=== PATIENT | female | born 1955 | race Caucasian/White ===

== ENCOUNTER 2016-09-02 15:21 | Emergency (ER) | payer BC ==
[2016-09-02 15:46] VITALS: BP 139/78
--- NOTE | 2016-09-02 17:07 | UC ---
Knee Pain HPI - HPI Summary HPI Summary: patient arrives after 2 days of acute onset medial knee pain. denies trauma or other injury. Awoke from sleep with 10/10 pain. Took motrin with little relief. Flexing knee makes it worse, resting and ice makes the pain better. In full extension - patient feels little to no pain. unable to bear weight completely. patient walks several miles per day and is very active. denies previous injury to the knee. denies warmth, redness and swelling. - History of Current Complaint Chief Complaint: UCLowerExtremity Stated Complaint: KNEE PAIN Hx Obtained From: Patient ?: No Onset/Duration: Sudden Onset Severity Initially: Moderate Severity Currently: Moderate Pain Intensity: 4 Pain Scale Used: 0-10 Numeric Character: Sharp Aggravating Factor(s): Movement, Weight Bearing, Stairs Alleviating Factor(s): Rest, Position - full extension Associated Signs And Symptoms: Positive: Negative Able to Bear Weight: No - only when fully extended, otherwise painful - Risk Factors Septic Arthritis Risk Factor: Negative Gout Risk Factor: Age ^ 38 - Allergies/Home Medications Allergies/Adverse Reactions: Allergies Allergy/AdvReac Type Severity Reaction Status Date / Time No Known Allergies Allergy Verified 09/02/16 15:46 PMH/Surg Hx/FS Hx/Imm Hx Previously Healthy: Yes Endocrine History Of: Denies: Diabetes, Thyroid Disease Cardiovascular History Of: Denies: Cardiac Disorders, Hypertension Respiratory History Of: Denies: COPD, Asthma GI/ History Of: Denies: Ulcer Psychological History Of: Reports: Depression - SLIGHT Cancer History Of: Denies: Breast Cancer - Surgical History Surgical History: Yes Surgery Procedure, Year, and Place: DETACHED RETINA- LEFT- 2011 - Social History Occupation: Employed Full-time Lives: With Family Alcohol Use: Occasionally Substance Use Type: None Smoking Status (MU): Never Smoked Tobacco Have You Smoked in the Last Year: No Review of Systems Constitutional: Negative Skin: Negative Respiratory: Negative Cardiovascular: Negative Musculoskeletal: Other: - full ROM, pain on medial side of knee Neurological: Weakness Psychological: Negative All Other Systems Reviewed And Are Negative: Yes Physical Exam Triage Information Reviewed: Yes Appearance: Well-Appearing, No Pain Distress, Well-Nourished Vital Signs: Initial Vital Signs Temp 98.8 F 09/02/16 15:41 Pulse 60 09/02/16 15:41 Resp 16 09/02/16 15:41 BP 139/78 09/02/16 15:41 Pulse Ox 98 09/02/16 15:41 Vital Signs Reviewed: Yes Eye Exam: Normal Eyes: Positive: Conjunctiva Clear Neck exam: Normal Neck: Positive: Supple Respiratory Exam: Normal Respiratory: Positive: Chest non-tender, Lungs clear Cardiovascular Exam: Normal Musculoskeletal: Positive: ROM Intact, No Edema, Strength Limited @ - pain Neurological: Positive: Alert Psychological: Positive: Normal Response To Family, Age Appropriate Behavior Skin Exam: Normal Knee Pain Course/Dx - Course Course Of Treatment: patient was given information on pes ansirine tendinitis. provider explained this is only a possibility of the patients knee pain, and should follow up with ortho if symptoms continue. low suspician for fx based on acute onset at rest, full ROM, pain on palpation of the medial collateral ligament - Differential Dx/Diagnosis Differential Diagnosis/HQI/PQRI: Sprain, Strain, Tendonitis Provider Diagnoses: knee pain - Physician Notifications Instructed by Provider To: Have Pt Call For Appt. - dr. wahl - ortho Discharge - Discharge Plan Condition: Stable Disposition: HOME Prescriptions: Gabapentin CAP(*) [Neurontin 300 CAP(*)] 300 mg PO BID #14 cap MDD 2 Hydrocodone-Acetaminophen [Hydrocodone/Acetaminophen 5-325 mg] 1 tab PO Q6HR # 15 tab MDD 4 Patient Education Materials: Tendinitis (ED) Referrals: No Primary Care Phys,NOPCP [Primary Care Provider] - Raymundo Wahl MD [Medical Doctor] - Additional Instructions: Follow up with primary care. May take Ibuprofen 600mg three times daily with meals. Gabapentin twice daily with meals. Oxycodone at bedtime, but may take up to 4 x daily if symptoms are severe.
== END 2016-09-02 16:56 | disposition home or self-care (01) ==
LOC: UCEAST 15:21
DX: M25.569 Pain in unspecified knee (principal)
CPT/HCPCS: 99212; G0463

== ENCOUNTER 2017-11-13 14:56 | Emergency (ER) | payer BC ==
[2017-11-13 15:36] VITALS: BP 150/96
--- NOTE | 2017-11-13 15:41 | UC ---
Throat Pain/Nasal Jared HPI - HPI Summary HPI Summary: Pt presents with sore throat and cough for the last 10 days. She tells me that her cough began about 10 days ago and was dry, but has progressed to productive yellow phlegm over the last 2-3 days. Has been taking delsym with mild relief. Denies fever, chills, SOB, chest pain, abdominal pain, or body aches - History of Current Complaint Chief Complaint: UCRespiratory Stated Complaint: COUGH/SORE THROAT Time Seen by Provider: 11/13/17 15:41 Hx Obtained From: Patient Onset/Duration: Gradual Onset Severity: Moderate Pain Intensity: 5 Pain Scale Used: 0-10 Numeric Cough: Productive - Allergies/Home Medications Allergies/Adverse Reactions: Allergies Allergy/AdvReac Type Severity Reaction Status Date / Time No Known Allergies Allergy Verified 11/13/17 15:36 PMH/Surg Hx/FS Hx/Imm Hx Previously Healthy: Yes Psychological History: Anxiety - Surgical History Surgical History: Yes Surgery Procedure, Year, and Place: DETACHED RETINA- LEFT- 2012-[place] - Family History Known Family History: Positive: Hypertension - Social History Occupation: Employed Full-time Lives: With Family Alcohol Use: Occasionally Substance Use Type: None Smoking Status (MU): Never Smoked Tobacco Have You Smoked in the Last Year: No Review of Systems Constitutional: Negative Skin: Negative Eyes: Negative ENT: Sore Throat Respiratory: Cough Cardiovascular: Negative Gastrointestinal: Negative Neurovascular: Negative Musculoskeletal: Negative Neurological: Negative Psychological: Negative All Other Systems Reviewed And Are Negative: Yes Physical Exam - Summary Physical Exam Summary: GENERAL: NAD. WDWN. No pain distress. SKIN: No rashes, sores, ulcers, masses, lesions. HEENT: Head: AT/NC Eyes: Conjunctiva clear without inflammation or discharge. Ears: Hearing grossly normal. TMs intact, no bulging, erythema, or edema. Nose: Nasal mucosa pink and moist. NTTP maxillary and frontal sinus. Throat: Posterior oropharynx without exudates, erythema, or tonsillar enlargement. Uvula midline. NECK: Supple. Nontender. No lymphadenopathy. CHEST: Mild wheezing throughout. No r/r. No accessory muscle use. Breathing comfortably and in no distress. CV: RRR. Without m/r/g. Pulses intact. Brisk cap refill. NEURO: Alert. CN II-XII grossly intact. PSYCH: Age appropriate behavior. Triage Information Reviewed: Yes Vital Signs: Initial Vital Signs Temp 100.0 F 11/13/17 15:33 Pulse 85 11/13/17 15:33 Resp 18 11/13/17 15:33 BP 150/96 11/13/17 15:33 Pulse Ox 98 11/13/17 15:33 Throat Pain/Nasal Course/Dx - Course Course Of Treatment: Suspect bronchitis. Will cover her with zpak, albuterol inhaler, and robitussin at bedtime. - Differential Dx/Diagnosis Provider Diagnoses: Bronchitis Discharge - Discharge Plan Condition: Stable Disposition: HOME Prescriptions: Albuterol HFA INHALER* [Ventolin HFA Inhaler*] 1 - 2 puff INH Q6H PRN #4 mdi PRN Reason: Sob/Wheezing Azithromycin TAB* [Zithromax TAB (Z-JOSE F) 250 mg #6 tabs] 2 tab PO .TODAY, THEN 1 DAILY #1 jose f guaiFENesin/CODIEN 100MG-10MG* [Robitussin AC 100Mg-10Mg*] 5 ml PO BEDTIME PRN # 30 ml MDD 5mL PRN Reason: Cough Patient Education Materials: Acute Bronchitis (ED) Referrals: Swati Bach NP [Primary Care Provider] - Additional Instructions: If you develop a fever, shortness of breath, chest pain, new or worsening symptoms - please call your PCP or go to the ED. Your blood pressure was high at todays visit. Please see your primary provider within 4 weeks for recheck and re-evaluation.
== END 2017-11-13 15:53 | disposition home or self-care (01) ==
LOC: UCEAST 14:56
DX: J40 Bronchitis, not specified as acute or chronic (principal)
CPT/HCPCS: 99212; G0463

== ENCOUNTER 2018-01-16 11:37 | Emergency (ER) | payer BC ==
[2018-01-16 11:45] VITALS: BP 142/88
--- NOTE | 2018-01-16 12:10 | UC ---
Throat Pain/Nasal Jared HPI - HPI Summary HPI Summary: 62 y/o female presents to the urgent care c/o sinus congestion w/ yellowish nasal discharge and AGGARWAL for the past 2 weeks. Pt reports about a months ago she was Dx w/ Bronchitis, symptoms resolved, but since she takes care of her grand children symptoms return w/ a common cold. Now Pain is 6/10 w/ pressure and + PND and decrease sense of smell. Pt has taken Motrin to alleviate symptoms. Pt denies fever, SOB, chest pain, abdominal pain, N/V/D. - History of Current Complaint Chief Complaint: UCRespiratory Stated Complaint: SINUS COMPLAINT Time Seen by Provider: 01/16/18 12:08 Hx Obtained From: Patient ?: No - Menopausal Onset/Duration: Gradual Onset, Lasting Weeks - 2 weeks, Still Present, Worse Since - last 2 days Severity: Moderate Pain Intensity: 6 Pain Scale Used: 0-10 Numeric Cough: Nonproductive Associated Signs & Symptoms: Positive: Sinus Discomfort, Nasal Discharge - yellowish, Other - decrease sense of smell - Epiglottits Risk Factors Epiglottis Risk Factors: Negative - Allergies/Home Medications Allergies/Adverse Reactions: Allergies Allergy/AdvReac Type Severity Reaction Status Date / Time No Known Allergies Allergy Verified 01/16/18 11:45 PMH/Surg Hx/FS Hx/Imm Hx Previously Healthy: Yes Psychological History: Depression - Surgical History Surgical History: Yes Surgery Procedure, Year, and Place: DETACHED RETINA- LEFT- 2012-[place] - Family History Known Family History: Positive: Hypertension, Diabetes - Social History Occupation: Unemployed Lives: With Family Alcohol Use: Occasionally Substance Use Type: None Smoking Status (MU): Former Smoker Have You Smoked in the Last Year: No Review of Systems Constitutional: Negative Skin: Negative Eyes: Negative ENT: Nasal Discharge, Sinus Congestion, Sinus Pain/Tenderness, Other - decrease sense of smell Respiratory: Cough - dry Cardiovascular: Negative Gastrointestinal: Negative Genitourinary: Negative Motor: Negative Neurovascular: Negative Musculoskeletal: Negative Neurological: Headache Psychological: Negative Is Patient Immunocompromised?: No All Other Systems Reviewed And Are Negative: Yes Physical Exam - Summary Physical Exam Summary: Vitals: reviewed General: Well developed, well-nourished female patient with NAD. Head and face: Normocephalic and atraumatic, Positive tenderness over the frontal and maxillary sinuses.. Eyes: PERRLA, EOMI x 2. Normal conjunctiva. No eye discharge. ENT: Ears and TM with normal limits. Nose: edematous and erythematous nasal mucosa with with yellowish discharge and erythematous mucosa. Pharynx with erythema, no exudate. +PND yellowish Neck: Supple, no JVD, no carotid bruits and no lymphadenopathy. Lungs: clear, no rales, no rhonchi, no wheezes. CVS: RRR, S1 and S2 present no murmurs or gallops appreciated. Abdomen: soft nontender with positive bowel sounds. Extremities: no edema noted. Neuro: WNL. Skin: warm and dry Triage Information Reviewed: Yes Vital Signs: Initial Vital Signs Temp 98 F 01/16/18 11:41 Pulse 84 01/16/18 11:41 Resp 20 01/16/18 11:41 BP 142/88 01/16/18 11:41 Pulse Ox 100 01/16/18 11:41 Throat Pain/Nasal Course/Dx - Course Course Of Treatment: 62 y/o female presents to the urgent care c/o sinus congestion w/ yellowish nasal discharge and AGGARWAL for the past 2 weeks. Pt reports about a months ago she was Dx w/ Bronchitis, symptoms resolved, but since she takes care of her grand children symptoms return w/ a common cold. Now Pain is 6/10 w/ pressure and +PND and decrease sense of smell. Pt has taken Motrin to alleviate symptoms. Pt denies fever, SOB, chest pain, abdominal pain, N/V/D. Hx obtained. Pt w/ acute bacterial sinusitis on examination. Pt with 2 weeks of symptoms getting worse. Pt Rx Augmentin PO and flonase nasal spray. Discharge instructions explained to Pt. Advised to Return to the clinic or PCP if symptoms do not improve. Pt's BP is elevated today advised to decrease salt in diet, monitor BP and f/u with PCP for further management. Pt understood and agreed with plan of care. - Differential Dx/Diagnosis Differential Diagnosis/HQI/PQRI: Influenza, Laryngitis, Sinusitis, URI, Other - bronchitis Provider Diagnoses: 1- Acute bacterial sinusitis. 2- Elevated BP w/o Hx of HTN Discharge - Sign-Out/Discharge Documenting (check all that apply): Discharge/Admit/Transfer - D/C home - Discharge Plan Condition: Stable Disposition: HOME Prescriptions: Amoxicillin/Clavulanate TAB* [Augmentin TAB 875*] 875 mg PO BID #20 tab Fluticasone NASAL SPRAY 50MCG* [Flonase NASAL SPRAY 50MCG*] 2 spray BOTH NARES DAILY #1 btl Patient Education Materials: Sinusitis (ED), Low-Sodium Diet (ED) Referrals: Swati Bach [employer]IST[employer] PROFESSOR [Primary Care Provider] - 1 Week Additional Instructions: 1- Please increase fluid intake and rest. take full course of antibiotic to avoid resistance 2-Use Flonase as directed to help drain fluid. Also buy saline drops to clear sinuses 3-Take Ibuprofen PO q6-8hrs prn to alleviates sinus pain and Headache 4-Return to the clinic or PCP if symptoms do not improve for further management and treatment 5-Your BP is elevated today. please decrease salt in your diet, monitor BP and if it continues to be elevated please f/u with your PCP for further management - Billing Disposition and Condition Condition: STABLE Disposition: HOME
== END 2018-01-16 12:40 | disposition home or self-care (01) ==
LOC: UCEAST 11:37
DX: J01.90 Acute sinusitis, unspecified (principal); R03.0 Elevated blood-pressure reading, without diagnosis of hypertension; F32.9 Major depressive disorder, single episode, unspecified; Z87.891 Personal history of nicotine dependence
CPT/HCPCS: 99212; G0463